=== PATIENT | male | born 1975 | race Caucasian/White ===

== ENCOUNTER 2017-08-10 07:24 | Emergency (ER) | payer OTHER ==
[~2017-08-10] VITALS: Ht 185.4 cm; Wt 113.6 kg
[~2017-08-10 07:24] MED LIST: LORTAB5 PO; NO HOME MEDS; ULTRAM50 MG PO
[2017-08-10 08:13] LABS: HEMATOCRIT 36.5 % (39.0-50.0); HEMOGLOBIN 12.4 g/dl (14.0-18.0); IMMATURE GRANULOCYTES 0.9 % (0.0-1.0); MEAN CELL VOLUME 89.5 fL CALC (80.0-100.0); MEAN CORPUSCULAR HGB 30.4 pG CALC (26.0-32.0); NEUT# 7.7 thou/uL (1.82-7.42); RED BLOOD COUNT 4.08 mill/uL (4.70-6.10); RED CELL DISTRI WIDTH 11.9 % (11.5-15.5)
[2017-08-10 08:26] LABS: PROTHROMBIN TIME 11.2 SECONDS (9.0-12.5)
[2017-08-10 08:28] LABS: ALBUMIN 3.8 g/dL (3.2-5.0); ALKALINE PHOSPHATASE 70 u/l (38-126); ANION GAP 14 (6-22 (CALC)); BILIRUBIN, TOTAL 1.4 mg/dL (0.0-1.4); BUN 11 mg/dL (9-20); BUN/CREATININE RATIO 11 (12-20 (CALC)); CALCIUM 9.8 mg/dL (8.4-10.2); CARBON DIOXIDE 26 mmol/l (22-30); CHLORIDE 105 mmol/l (95-108); GFR > 60 ML/MIN (>=60 (CALC)); GFR FOR AFR.AMER. > 60 ML/MIN (>=60 (CALC)); GLUCOSE 117 mg/dL (75-110); POTASSIUM 3.9 mmol/l (3.5-5.1); SGOT/AST 53 u/l (17-59); SGPT/ALT 40 u/l (21-72); SODIUM 140 mmol/l (137-146); TOTAL PROTEIN 6.2 g/dL (6.3-8.2)
[2017-08-10 11:01] VITALS: BP 128/66
== END 2017-08-10 11:01 | DRG 563 ==
LOC: ED 07:24
PROVIDERS: Emergency Medicine
PROC: 0HQGXZZ Repair Left Hand Skin, External Approach (ICD-10-PCS; principal; 2017-08-10)
PROC: 2W3FX1Z Immobilization of Left Hand using Splint (ICD-10-PCS; 2017-08-10)
PROC: 2W3EX1Z Immobilization of Right Hand using Splint (ICD-10-PCS; 2017-08-10)
DX: S52.591A Other fractures of lower end of right radius, initial encounter for closed fracture (principal); S01.81XA Laceration without foreign body of other part of head, initial encounter; S61.412A Laceration without foreign body of left hand, initial encounter; V54.5XXA Driver of pick-up truck or van injured in collision with heavy transport vehicle or bus in traffic accident, initial encounter; Y93.I9 Activity, other involving external motion; Y92.413 State road as the place of occurrence of the external cause

== ENCOUNTER 2019-03-04 23:26 | Observation (INO) | payer OTHER ==
[~2019-03-04] VITALS: Ht 182.9 cm; Wt 134.0 kg
[2019-03-04] MEDS ORDERED: OMEPRAZOLE10 MG PO (23:43)
[2019-03-04] MEDS ORDERED: SERTRALINE50 MG PO (23:44)
[2019-03-04] MEDS ORDERED: MELOXICAM15 MG PO (23:44)
[2019-03-04 23:49] LABS: HEMATOCRIT 41.7 % (39.0-50.0); IMMATURE GRANULOCYTES 0.5 % (0.0-5.0); MEAN CORPUSCULAR HGB 29.5 pG CALC (26.0-32.0); MEAN CORPUSCULAR HGB CONC 33.6 g/L CALC (32.0-36.0); NEUT# 4.4 thou/uL (1.82-7.42); RED BLOOD COUNT 4.74 mill/uL (4.70-6.10); RED CELL DISTRI WIDTH 12.6 % (11.5-15.5)
[2019-03-05] VITALS (9 sets, daily range): BP systolic 112–145; BP diastolic 59–78
[2019-03-05 00:03] LABS: ALBUMIN 4.2 g/dL (3.2-5.0); ALKALINE PHOSPHATASE 89 u/l (38-126); ANION GAP 14 (6-22 (CALC)); BILIRUBIN, TOTAL 0.6 mg/dL (0.0-1.4); BUN 11 mg/dL (9-20); BUN/CREATININE RATIO 13 (12-20 (CALC)); CARBON DIOXIDE 24 mmol/l (22-30); CHLORIDE 108 mmol/l (95-108); CREATININE 0.8 mg/dL (0.7-1.3); GFR > 60 ML/MIN (>=60 (CALC)); GFR FOR AFR.AMER. > 60 ML/MIN (>=60 (CALC)); SGOT/AST 32 u/l (17-59); SODIUM 142 mmol/l (137-146)
[2019-03-05 00:15] LABS: MYOGLOBIN 25 ng/mL (0 - 121)
[2019-03-05] MEDS ORDERED: BENADRYL 50MG C50 MG PO (14:37)
[2019-03-05] MEDS ORDERED: EPIPEN 2-P0.3 MG/0.3 IM (14:37)
[2019-03-05] MEDS ORDERED: PREDNISONE10 MG PO (14:37)
== END 2019-03-05 15:27 | disposition home or self-care (01) ==
LOC: ED 23:26 → ED-I 03-05 00:15 → ED 03-05 00:38 → ICU 03-05 00:39
PROVIDERS: Emergency Medicine; ADMIT Internal Medicine; ATTEND Internal Medicine
DX: T78.1XXA Other adverse food reactions, not elsewhere classified, initial encounter (principal); T78.3XXA Angioneurotic edema, initial encounter; G10 Huntington's disease; F02.80 Dementia in other diseases classified elsewhere, unspecified severity, without behavioral disturbance, psychotic disturbance, mood disturbance, and anxiety; G47.33 Obstructive sleep apnea (adult) (pediatric); M19.90 Unspecified osteoarthritis, unspecified site; Z87.820 Personal history of traumatic brain injury; Z91.013 Allergy to seafood

== ENCOUNTER 2020-10-19 12:43 | Emergency (ER) | payer OTHER ==
[~2020-10-19] VITALS: Ht 182.9 cm; Wt 85.0 kg
[~2020-10-19 12:43] MED LIST changes: +BENADRYL 50MG C50 MG PO; +EPIPEN 2-P0.3 MG/0.3 IM; +MELOXICAM15 MG PO; +OMEPRAZOLE10 MG PO; +PREDNISONE10 MG PO; +SERTRALINE50 MG PO
[2020-10-19] MEDS ORDERED: DONEPEZIL10 MG PO (13:09)
[2020-10-19] MEDS ORDERED: ULTRAM50 MG PO (14:25)
[2020-10-19 14:47] VITALS: BP 134/84
== END 2020-10-19 14:47 | disposition home or self-care (01) ==
LOC: ED 12:43
DX: S22.080A Wedge compression fracture of T11-T12 vertebra, initial encounter for closed fracture (principal); S40.211A Abrasion of right shoulder, initial encounter; K21.9 Gastro-esophageal reflux disease without esophagitis; G31.9 Degenerative disease of nervous system, unspecified; F02.80 Dementia in other diseases classified elsewhere, unspecified severity, without behavioral disturbance, psychotic disturbance, mood disturbance, and anxiety; W18.2XXA Fall in (into) shower or empty bathtub, initial encounter; Y93.E1 Activity, personal bathing and showering; Z87.820 Personal history of traumatic brain injury; Z91.81 History of falling